=== PATIENT | female | born 1990 | race Caucasian/White ===

== ENCOUNTER 2016-08-24 14:06 | Emergency (ER) | payer OTHER ==
[~2016-08-24] VITALS: Ht 157.5 cm; Wt 86.4 kg
[2016-08-24 14:08] VITALS: BP 143/82
[2016-08-24] MEDS ORDERED: PRENTAB44 PO (14:19)
[2016-08-24] MEDS ORDERED: ZOFR20TA PO (14:19)
[2016-08-24] MEDS ORDERED: ONDANSETRON 4 MG ORAL DISINTEGRATING TAB (S0181) PO ONE (14:30)
[2016-08-24] MEDS ORDERED: NS 1,000 ML IV ONE (14:30)
[2016-08-24] MEDS ORDERED: NITROFURANTOIN (MACROBID) 100 MG CAP PO ONE (15:15)
[2016-08-24] MEDS ORDERED: MACR100C43 PO (15:17)
[2016-08-25] MEDS ORDERED: REGL10TA6 PO (12:32)
== END 2016-08-24 16:30 | disposition home or self-care (01) ==
LOC: M ED 15:56
DX: O21.0 Mild hyperemesis gravidarum (principal); O23.41 Unspecified infection of urinary tract in pregnancy, first trimester; Z3A.11 11 weeks gestation of pregnancy

== ENCOUNTER 2016-08-25 08:33 | Emergency (ER) | payer OTHER ==
[~2016-08-25] VITALS: Ht 157.5 cm; Wt 86.3 kg
[~2016-08-25 08:33] MED LIST: MACR100C43 PO; PRENTAB44 PO; ZOFR20TA PO
[2016-08-25] MEDS ORDERED: METOCLOPRAMIDE INJ 10MG/2ML VIAL (J2765) IV ONE (09:30)
[2016-08-25] MEDS ORDERED: NS 1,000 ML IV ONE (09:30)
[2016-08-25 10:29] LABS: ALKALINE PHOSPHATASE 60 U/L (45-117); ALT/SGPT 54 U/L (12-78); ANION GAP 7 MEQ/L (8-16); AST/SGOT 28 U/L (15-37); BLOOD UREA NITROGEN 6 MG/DL (7-18); CALCIUM LEVEL 9.5 MG/DL (8.5-10.1); CARBON DIOXIDE LEVEL 26 MEQ/L (21-32); CHLORIDE LEVEL 106 MEQ/L (98-107); CREATININE FOR GFR 0.61 MG/DL (0.55-1.02); GLOMERULAR FILTRATION RATE > 60.0 (>60); GLUCOSE, FASTING 84 MG/DL (70-105); POTASSIUM SERUM 3.9 MEQ/L (3.5-5.1); SODIUM LEVEL 139 MEQ/L (136-145)
[2016-08-25 10:30] LABS: ALBUMIN 3.3 GM/DL (3.2-5.2); BILIRUBIN,DIRECT < 0.1 MG/DL (0.0-0.2); BILIRUBIN,TOTAL 0.3 MG/DL (0.2-1.0); TOTAL PROTEIN 7.4 GM/DL (6.4-8.2)
[2016-08-25 10:47] LABS: BASO % 0.3 % (0.0-1.0); EOS % 0.8 % (0.0-3.0); LARGE UNSTAINED CELL # 0.3 K/mm3 (0.0-0.4); LARGE UNSTAINED CELL % 5.1 % (0.0-4.0); LYMPH # 1.8 K/mm3 (1.5-6.5); MEAN CORPUSCULAR HEMOGLOBIN 32.1 pg (27.0-33.0); MEAN CORPUSCULAR HGB CONC 35.1 g/dl (32.0-36.5); MEAN CORPUSCULAR VOLUME 91.5 fl (80.0-96.0); MONO # 0.5 K/mm3 (0.0-0.8); MONO % 7.5 % (0.0-5.0); NEUTROPHILS # 4.1 K/mm3 (1.8-7.7); NEUTROPHILS % 63.3 % (36.0-66.0); PLATELET COUNT, AUTOMATED 195 k/mm3 (150-450); RED CELL DISTRIBUTION WIDTH 12.2 % (11.5-14.5); WHITE BLOOD COUNT 6.5 K/mm3 (4.0-10.0)
[2016-08-25] MEDS ORDERED: REGL10TA6 PO (12:32)
[2016-08-25 13:12] VITALS: BP 113/72
== END 2016-08-25 13:12 | disposition home or self-care (01) ==
LOC: M ED 12:07
DX: O26.891 Other specified pregnancy related conditions, first trimester (principal); R11.0 Nausea; Z3A.11 11 weeks gestation of pregnancy
CPT/HCPCS: 80048; 80076; 81001; 85025; 87086; 96374; 99283; J2765

== ENCOUNTER 2016-08-31 13:27 | Emergency (ER) | payer OTHER ==
[~2016-08-31] VITALS: Ht 157.5 cm; Wt 84.9 kg
[~2016-08-31 13:27] MED LIST changes: +REGL10TA6 PO
[2016-08-31] MEDS ORDERED: NS 1,000 ML IV ONE (14:45)
[2016-08-31] MEDS ORDERED: TRIMETHOBENZAMIDE HCL INJ 200 MG/2 ML VIAL (J3250) IM ONE (14:45)
[2016-08-31 15:18] LABS: BASO % 0.2 % (0.0-1.0); EOS % 0.5 % (0.0-3.0); LARGE UNSTAINED CELL # 0.4 K/mm3 (0.0-0.4); LARGE UNSTAINED CELL % 4.8 % (0.0-4.0); LYMPH # 2.1 K/mm3 (1.5-6.5); LYMPH % 20.2 % (24.0-44.0); MEAN CORPUSCULAR HEMOGLOBIN 31.9 pg (27.0-33.0); MEAN CORPUSCULAR HGB CONC 34.6 g/dl (32.0-36.5); MEAN CORPUSCULAR VOLUME 92.2 fl (80.0-96.0); MONO # 0.6 K/mm3 (0.0-0.8); MONO % 6.4 % (0.0-5.0); NEUTROPHILS # 5.8 K/mm3 (1.8-7.7); NEUTROPHILS % 67.8 % (36.0-66.0); PLATELET COUNT, AUTOMATED 228 k/mm3 (150-450); RED CELL DISTRIBUTION WIDTH 12.5 % (11.5-14.5); WHITE BLOOD COUNT 8.6 K/mm3 (4.0-10.0)
--- NOTE | 2016-08-31 15:35 | REP ---
Clinical: Vaginal bleeding. Dating and viability. Technique: Transabdominal first trimester obstetrical ultrasound with color Doppler evaluation. Findings: Single live early intrauterine is appreciated. Gestational sac with pole; crown-rump length of 53 mm corresponds to 12 weeks 0 days gestational age with estimated date of delivery 03/15/2017 . heart rate equals 155 beats per minute. A small subchorionic hemorrhage along the left side of the uterus measures 19 x 5 x 11 mm. Impression: Single live early intrauterine at 12 weeks 0 days gestational age. Complete anatomical assessment should be performed and 19-20 weeks. Small subchorionic hemorrhage. Signed by Jame Darby MD 08/31/2016 03:27 P
[2016-08-31 15:43] LABS: ALBUMIN 3.7 GM/DL (3.2-5.2); ALBUMIN/GLOBULIN RATIO 0.95 (1.00-1.93); ALKALINE PHOSPHATASE 69 U/L (45-117); ALT/SGPT 109 U/L (12-78); ANION GAP 8 MEQ/L (8-16); AST/SGOT 32 U/L (15-37); BILIRUBIN,TOTAL 0.3 MG/DL (0.2-1.0); BLOOD UREA NITROGEN 8 MG/DL (7-18); CARBON DIOXIDE LEVEL 25 MEQ/L (21-32); CHLORIDE LEVEL 105 MEQ/L (98-107); CREATININE FOR GFR 0.62 MG/DL (0.55-1.02); GLOMERULAR FILTRATION RATE > 60.0 (>60); GLUCOSE, FASTING 81 MG/DL (70-105); SODIUM LEVEL 138 MEQ/L (136-145); TOTAL PROTEIN 7.6 GM/DL (6.4-8.2)
[2016-08-31] MEDS ORDERED: TIGA300C2 PO (16:03)
[2016-08-31 16:16] VITALS: BP 118/60
== END 2016-08-31 16:17 | disposition home or self-care (01) ==
LOC: M ED 13:27
DX: O21.0 Mild hyperemesis gravidarum (principal); Z3A.12 12 weeks gestation of pregnancy
CPT/HCPCS: 76801; 80053; 81001; 85025; 87086; 93976; 96372; 99283; J3250

== ENCOUNTER 2016-10-04 04:59 | Emergency (ER) | payer OTHER ==
[~2016-10-04 04:59] MED LIST changes: +TIGA300C2 PO
[2016-10-04] MEDS ORDERED: PHEN2SUP PR (05:10)
[2016-10-04] MEDS ORDERED: ACETAMINOPHEN 325 MG TAB PO ONE (06:00)
[2016-10-04 06:14] LABS: BASO % 0.2 % (0.0-1.0); EOS # 0.1 K/mm3 (0.0-0.50); EOS % 0.8 % (0.0-3.0); LARGE UNSTAINED CELL # 0.4 K/mm3 (0.0-0.4); LARGE UNSTAINED CELL % 4.6 % (0.0-4.0); LYMPH % 20.8 % (24.0-44.0); MEAN CORPUSCULAR HEMOGLOBIN 32.4 pg (27.0-33.0); MEAN CORPUSCULAR HGB CONC 35.7 g/dl (32.0-36.5); MEAN CORPUSCULAR VOLUME 90.9 fl (80.0-96.0); MONO # 0.6 K/mm3 (0.0-0.8); MONO % 7.4 % (0.0-5.0); NEUTROPHILS # 5.3 K/mm3 (1.8-7.7); NEUTROPHILS % 66.3 % (36.0-66.0); PLATELET COUNT, AUTOMATED 205 k/mm3 (150-450); RED CELL DISTRIBUTION WIDTH 12.8 % (11.5-14.5)
--- NOTE | 2016-10-04 07:10 | REPUSA ---
CLINICAL HISTORY: Pelvic pain. TECHNIQUE: Realtime sonographic images were obtained in multiple projections via TA approach. The exa mination was performed by the geophysical data technician and still images were submitted for interpretation. COMMENTS: Single, live intrauterine gestation. motion was identified. heart rate 145 beats per minute. Posterior placenta without evidence of placental abruption. Amniotic fluid appears within normal limits. No abnormality in the maternal adnexa. The estimated gestation age is 16 weeks and 3 days. Estimated delivery date on 03/18/2017. The maternal cervical length is 3 cm. This was measured transvaginally. Findings on the internal os was not visualized. Contractions seen in the lower uterine segment in anterior and posterior soto. Placenta is 3.5 cm from the internal cervical os. IMPRESSION: Single, live intrauterine gestation. Posterior placenta. Unremarkable maternal adnexa. Thank you for your kind referral of this patient.
[2016-10-04 07:23] VITALS: BP 122/73
== END 2016-10-04 07:24 | disposition home or self-care (01) ==
LOC: M ED 04:59
DX: O20.0 Threatened abortion (principal); Z3A.16 16 weeks gestation of pregnancy

== ENCOUNTER 2016-10-15 06:20 | Inpatient (IN) | payer OTHER ==
[~2016-10-15] VITALS: Ht 157.5 cm; Wt 84.0 kg
[~2016-10-15 06:20] MED LIST changes: +PHEN2SUP PR
[2016-10-15 07:27] LABS: ANION GAP 13 MEQ/L (8-16); BLOOD UREA NITROGEN 5 MG/DL (7-18); CALCIUM LEVEL 8.7 MG/DL (8.5-10.1); CARBON DIOXIDE LEVEL 20 MEQ/L (21-32); CHLORIDE LEVEL 107 MEQ/L (98-107); GLOMERULAR FILTRATION RATE > 60.0 (>60); GLUCOSE, FASTING 81 MG/DL (70-105); POTASSIUM SERUM 3.8 MEQ/L (3.5-5.1); SODIUM LEVEL 140 MEQ/L (136-145)
[2016-10-15 07:29] LABS: BASO % 0.1 % (0.0-1.0); EOS % 0.2 % (0.0-3.0); LARGE UNSTAINED CELL # 0.5 K/mm3 (0.0-0.4); LARGE UNSTAINED CELL % 4.6 % (0.0-4.0); LYMPH # 1.5 K/mm3 (1.5-6.5); MEAN CORPUSCULAR HEMOGLOBIN 32.6 pg (27.0-33.0); MEAN CORPUSCULAR VOLUME 93.2 fl (80.0-96.0); MONO # 0.6 K/mm3 (0.0-0.8); MONO % 5.8 % (0.0-5.0); NEUTROPHILS # 8.2 K/mm3 (1.8-7.7); NEUTROPHILS % 79.2 % (36.0-66.0); PLATELET COUNT, AUTOMATED 195 k/mm3 (150-450); WHITE BLOOD COUNT 10.3 K/mm3 (4.0-10.0)
[2016-10-15] MEDS: LR 1,000 ML IV SCH ×2 (08:11→16:11)
[2016-10-15] MEDS ORDERED: DOCUSATE SODIUM 100 MG CAP PO PRN (08:15)
--- NOTE | 2016-10-15 08:50 | REP ---
Obstetric ultrasound for vaginal bleeding: The studies performed with transabdominal and endovaginal imaging. According to the first ultrasound during this gestation the gestational age is 18 weeks 3 days with an JOANNE of of 2018. There is a single intrauterine gestation in a vertex presentation. heart rate is 153 - 160 beats per minute. On the images where there is an contraction in the anterior myometrium. There is questionably a cervix measuring 9.5 mm in length. This is somewhat obscured by the anterior contraction. Later during the examination after the contraction subsided the cervical canal is open with the lumen measuring 11 mm. The head is immediately adjacent to the open internal cervical os. Along the posterior margin of the endocervical canal. There is a focal clot measuring 10 x 17 mm. The clot remains in this location with the cervix opened. The placenta is anterior with grade 1 maturity. Impression: On endovaginal imaging at the end of the examination , the cervical canal is open with the lumen measuring 11 mm in diameter. head is immediately adjacent to t the internal cervical os. There is a 10 x 17 mm clot within the uterus immediately adjacent to the posterior margin of the internal cervical os. During transabdominal imaging at the beginning of the examination , there was a contraction in the anterior myometrium and the during this contraction the cervix was closed and measured approximately 9.5 mm in length. Signed by Delfin Lincoln MD 10/15/2016 08:43 A
[2016-10-15] MEDS: PRENATAL VITAMINS CHEWABLE TABLET PO SCH (09:00)
[2016-10-15] MEDS ORDERED: FLIN1CHW PO (11:37)
[2016-10-15] MEDS ORDERED: ACETAMINOPHEN 500 MG TAB PO PRN (13:30)
[2016-10-15 13:39] VITALS: BP 133/84
[2016-10-15] MEDS: ACETAMINOPHEN SUSP DYE FREE 160 MG/5 ML UDC PO PRN ×2 (14:51→21:49)
[2016-10-15 15:04] VITALS: BP 120/70
[2016-10-15 17:00] VITALS: BP 129/73
[2016-10-15 18:38] VITALS: BP 122/63
[2016-10-15 20:29] VITALS: BP 126/68
[2016-10-15] MEDS ORDERED: ONDANSETRON 4MG/2ML VIAL (J2405) IV PRN (20:45)
[2016-10-15 22:18] VITALS: BP 131/74
[2016-10-15] MEDS ORDERED: diphenhydrAMINE INJ 50MG/ML VIAL (J1200) IV PRN (23:30)
[2016-10-16] VITALS (11 sets, daily range): BP systolic 108–139; BP diastolic 58–80
[2016-10-16] MEDS: LR 1,000 ML IV SCH ×4 (02:00→22:32)
[2016-10-16] MEDS: ACETAMINOPHEN SUSP DYE FREE 160 MG/5 ML UDC PO PRN ×2 (05:44→11:34)
--- NOTE | 2016-10-16 09:20 | REP ---
Chest x-ray: Two views. Abdominopelvic shielding utilized. History: 18 weeks gestation with fever. Comparison study: No comparison study. Findings: The lungs are well inflated and free of infiltrate. The pleural angles are sharp. The heart size is normal. Pulmonary vasculature is not increased. No significant bony abnormality is seen. Impression: Negative chest x-ray. Signed by Panchito Degroot MD 10/16/2016 01:07 P
[2016-10-16] MEDS: PRENATAL VITAMINS CHEWABLE TABLET PO SCH (09:35)
[2016-10-16 10:02] LABS: MEAN CORPUSCULAR HEMOGLOBIN 32.1 pg (27.0-33.0); MEAN CORPUSCULAR VOLUME 91.9 fl (80.0-96.0); RED CELL DISTRIBUTION WIDTH 12.5 % (11.5-14.5); WHITE BLOOD COUNT 6.9 K/mm3 (4.0-10.0)
[2016-10-16] MEDS: AMPICILLIN SOD 2 GM in D5W MINI-BAG PLUS 100 ML IV SCH ×3 (10:46→22:00)
[2016-10-16] MEDS: GENTAMICIN 160 MG in D5W 50 ML IV SCH (11:20)
[2016-10-16] MEDS ORDERED: ACETAMINOPHEN 650 MG SUPP As Ordered ONE ×2 (16:23→16:25)
[2016-10-16] MEDS ORDERED: ACETAMINOPHEN 650 MG SUPP PR ONE (16:45)
[2016-10-16] MEDS ORDERED: miSOPROStol 200 MCG TAB (S0191) PO ONE (17:00)
[2016-10-16] MEDS ORDERED: diphenhydrAMINE INJ 50MG/ML VIAL (J1200) IM ONE (17:30)
[2016-10-16] MEDS ORDERED: MORPHINE 2 MG/ML 1ML SYRINGE IV PRN (17:30)
[2016-10-16] MEDS ORDERED: RHOGAM 300 MCG (1500 IU) INJ (J2790) IM SCH (18:15)
[2016-10-16] MEDS ORDERED: PROMETHAZINE 25 MG TAB PO PRN (18:15)
[2016-10-16] MEDS ORDERED: MEASLES,MUMPS,RUBELLA VACCINE INJ (MMR-II) (90707) SC SCH (18:15)
[2016-10-16] MEDS ORDERED: DIBUCAINE 1% OINTMENT 30GM TOP PRN (18:15)
[2016-10-16] MEDS: IBUPROFEN 800 MG TAB PO PRN (20:34)
[2016-10-16] MEDS ORDERED: diphenhydrAMINE INJ 50MG/ML VIAL (J1200) IM SCH (21:00)
[2016-10-17] MEDS ORDERED: miSOPROStol 200 MCG TAB (S0191) PR STA ×2 (05:44→06:59)
[2016-10-17 06:19] VITALS: BP 112/55
[2016-10-17] MEDS: AMPICILLIN SOD 2 GM in D5W MINI-BAG PLUS 100 ML IV SCH ×4 (06:31→22:19)
[2016-10-17] MEDS: ACETAMINOPHEN SUSP DYE FREE 160 MG/5 ML UDC PO PRN ×2 (06:31→20:59)
[2016-10-17] MEDS: IBUPROFEN 800 MG TAB PO PRN ×2 (06:32→16:57)
[2016-10-17] MEDS: PRENATAL VITAMINS CHEWABLE TABLET PO SCH (08:46)
[2016-10-17] MEDS ORDERED: ADACEL/BOOSTRIX VACCINE (DIPHTH/PERTUSS/ACELL/TETANUS)0.5ML SYR (90715) IM ONE (09:00)
[2016-10-17 10:37] VITALS: BP 129/62
[2016-10-17] MEDS: GENTAMICIN 160 MG in D5W 50 ML IV SCH (11:45)
[2016-10-17 14:24] VITALS: BP 116/73
[2016-10-17 18:31] VITALS: BP 139/77
[2016-10-17 22:00] VITALS: BP 116/74
[2016-10-17] MEDS ORDERED: LORazepam 1 MG TAB PO STA (22:34)
[2016-10-18 02:05] VITALS: BP 111/67
[2016-10-18] MEDS: AMPICILLIN SOD 2 GM in D5W MINI-BAG PLUS 100 ML IV SCH (04:09)
[2016-10-18 06:00] VITALS: BP 138/84
[2016-10-18] MEDS: PRENATAL VITAMINS CHEWABLE TABLET PO SCH (08:09)
[2016-10-18 09:51] VITALS: BP 122/75
[2016-10-18] MEDS: IBUPROFEN 800 MG TAB PO PRN (11:22)
[2016-10-18 14:19] VITALS: BP 129/83
--- NOTE | 2016-10-18 14:20 | REP ---
Pelvic ultrasound transabdominal and endovaginal: The patient recently delivered. The bladder is adequately distended. The uterus is enlarged measuring 15.3 x 6.3 x 8.3 cm. The endometrium is diffusely thickened measuring up to 16.7 mm and is mildly diffusely echogenic. The uterus has a subseptate configuration. 4. Unable to absolutely exclude retained products at this time. The ovaries are normal size. Right ovary measures 1.8 x 1.3 x 1.7 cm. Left ovary measures 2.2 x 1.3 x 1.9 cm. There is no free fluid in the pelvis. Impression: Diffusely enlarged uterus. Diffusely thickened echogenic endometrium. Subseptate configuration of the uterus. There are absolutely exclude retained products at this time. Signed by Delfin Lincoln MD 10/18/2016 02:10 P
[2016-10-18 18:53] VITALS: BP 134/84
--- NOTE | 2016-10-18 20:11 | ECGEPIP ---
Stationary ECG Study [facility] Test Date: 2016-10-18 Pat Name: DEYSI OGRE Department: Room: [place] [address] Gender: F Manager Clinical Applications: : 1990 Requested By: HU Nguyen Order Number: [id number] Reading MD: Ajit Echeverria Measurements Intervals [place] Rate: 83 P: 15 KS: 146 QRS: 11 QRSD: 98 T: 0 QT: 349 QTc: 411 Interpretive Statements SINUS RHYTHM MINIMAL VOLTAGE CRITERIA FOR LVH, CONSIDER NORMAL VARIANT NO PRIOR Electronically Signed On 10-18-2016 20:10:37 EDT by Ajit Echeverria
[2016-10-18 22:00] VITALS: BP 139/93
[2016-10-19] MEDS: IBUPROFEN 800 MG TAB PO PRN ×2 (00:26→08:28)
[2016-10-19 02:00] VITALS: BP 119/78
[2016-10-19 06:25] VITALS: BP 120/80
[2016-10-19] MEDS: PRENATAL VITAMINS CHEWABLE TABLET PO SCH (08:29)
[2016-10-19] MEDS ORDERED: COLA100C5 PO (09:08)
[2016-10-19] MEDS ORDERED: IBUP-1114 PO (09:09)
== END 2016-10-19 11:50 | disposition home or self-care (01) | DRG 775 ==
LOC: M ED 06:20 → M ED INP 08:11 → M LDI 11:01 → M OBS 20:24 → M LDI 10-16 16:51 → M OBS 10-16 23:55
PROVIDERS: ADMIT Obstetrics & Gynecology; ATTEND Obstetrics & Gynecology
PROC: 10E0XZZ Delivery of Products of Conception, External Approach (ICD-10-PCS; principal; 2016-10-16)
PROC: 3E0DXGC Introduction of Other Therapeutic Substance into Mouth and Pharynx, External Approach (ICD-10-PCS; 2016-10-16)
DX: O26.872 Cervical shortening, second trimester (principal); O60.12X0 Preterm labor second trimester with preterm delivery second trimester, not applicable or unspecified; O41.1220 Chorioamnionitis, second trimester, not applicable or unspecified; Z37.0 Single live birth; Z3A.18 18 weeks gestation of pregnancy; Z91.013 Allergy to seafood; O42.012 Preterm premature rupture of membranes, onset of labor within 24 hours of rupture, second trimester

== ENCOUNTER → 2017-04-12 | Outpatient (CLI) | payer OTHER | LOC: M RAD 12:51 | DX: N92.6 Irregular menstruation, unspecified (principal) ==

== ENCOUNTER 2017-07-23 06:26 | Emergency (ER) | payer OTHER ==
[2017-07-23 07:49] LABS: BASO % 0.3 % (0.0-1.0); EOS # 0.1 10^3/uL (0.0-0.50); EOS % 1.8 % (0.0-3.0); HEMATOCRIT 38.2 % (36.0-47.0); HEMOGLOBIN 12.5 g/dl (12.0-15.5); IMMATURE GRANULOCYTE % 0.4 % (0-3.0); LYMPH # 1.9 10^3/uL (1.5-6.5); LYMPH % 24.2 % (24.0-44.0); MEAN CORPUSCULAR HEMOGLOBIN 28.6 pg (27.0-33.0); MEAN CORPUSCULAR HGB CONC 32.7 g/dl (32.0-36.5); MEAN CORPUSCULAR VOLUME 87.4 fl (80.0-96.0); MONO # 0.6 10^3/uL (0.0-0.8); MONO % 6.9 % (0.0-5.0); NEUTROPHILS # 5.3 10^3/uL (1.8-7.7); NEUTROPHILS % 66.4 % (36.0-66.0); PLATELET COUNT, AUTOMATED 278 10^3/uL (150-450); RED BLOOD COUNT 4.37 10^6/uL (4.00-5.40); RED CELL DISTRIBUTION WIDTH 14.9 % (11.5-14.5); WHITE BLOOD COUNT 7.9 10^3/uL (4.0-10.0)
[2017-07-23 07:53] LABS: KETONE, URINE AUTO RFX NEGATIVE (NEGATIVE); LEUKOCYTE ESTERASE UR AUTO RFX NEGATIVE (NEGATIVE); MUCUS, URINE RFX SMALL (NEGATIVE); NITRITE, URINE AUTO RFX NEGATIVE (NEGATIVE); RBC, URINE AUTO RFX 2 /HPF (0-3); SPECIFIC GRAVITY UR AUTO RFX 1.025 (1.002-1.035); SQUAM EPITHELIAL CELL UR AURFX 4 /HPF (0-6); WBC, URINE AUTO RFX 2 /HPF (0-3)
[2017-07-23 08:42] LABS: HCG, SERUM QUANTITATIVE 2970 MIU/ML
[2017-07-23 10:48] LABS: CHLAMYDIA DNA AMPLIFICATION NEGATIVE (NEGATIVE); GC DNA AMPLIFICATION NEGATIVE (NEGATIVE)
== END 2017-07-23 10:29 | disposition home or self-care (01) ==
LOC: M ED 06:26
DX: O20.0 Threatened abortion (principal); O99.281 Endocrine, nutritional and metabolic diseases complicating pregnancy, first trimester; E28.2 Polycystic ovarian syndrome; Z3A.01 Less than 8 weeks gestation of pregnancy; Z79.899 Other long term (current) drug therapy; Z88.5 Allergy status to narcotic agent; Z88.8 Allergy status to other drugs, medicaments and biological substances; Z91.048 Other nonmedicinal substance allergy status
CPT/HCPCS: 76801

== ENCOUNTER → 2017-07-25 | Outpatient (CLI) | payer OTHER ==
[2017-07-25 09:14] LABS: HCG, SERUM QUANTITATIVE 5382 MIU/ML
== END ==
LOC: M LAB 08:02
DX: O20.0 Threatened abortion (principal); Z3A.00 Weeks of gestation of pregnancy not specified
CPT/HCPCS: 84702

== ENCOUNTER → 2017-11-25 | Outpatient (CLI) | payer OTHER | LOC: M RAD 09:35 | DX: N64.4 Mastodynia (principal) | CPT/HCPCS: 76642 ==

== ENCOUNTER 2017-11-27 23:41 | Outpatient (CLI) | payer OTHER | END 2017-11-28 01:35 | disposition home or self-care (01) | LOC: M LDO 23:41 | DX: O26.852 Spotting complicating pregnancy, second trimester (principal); Z3A.23 23 weeks gestation of pregnancy | CPT/HCPCS: G0463 ==

== ENCOUNTER 2018-03-19 07:44 | Outpatient (CLI) | payer OTHER ==
[~2018-03-19] VITALS: Ht 157.5 cm; Wt 115.3 kg
[~2018-03-19 07:44] MED LIST changes: +COLA100C5 PO; +FLIN1CHW PO; +IBUP-1114 PO; -ZOFR20TA PO; +ZOFR4TAB16 PO; +ZYRT10CA PO
[2018-03-19 08:08] VITALS: BP 135/93
[2018-03-19] MEDS ORDERED: ASPI81TA85 PO (08:15)
[2018-03-19] MEDS ORDERED: RANI1SYP PO (08:15)
[2018-03-19 09:33] VITALS: BP 136/93
== END 2018-03-19 09:19 | disposition home or self-care (01) ==
LOC: M LDO 07:44
PROVIDERS: ATTEND Obstetrics & Gynecology
DX: O47.1 False labor at or after 37 completed weeks of gestation (principal); Z3A.39 39 weeks gestation of pregnancy
CPT/HCPCS: 59025; G0378; G0463

== ENCOUNTER 2018-03-20 06:19 | Inpatient (IN) | payer OTHER ==
[2018-03-20] VITALS (34 sets, daily range): BP systolic 111–177; BP diastolic 56–93
[~2018-03-20] VITALS: Ht 157.5 cm; Wt 115.3 kg
[~2018-03-20 06:19] MED LIST changes: +ASPI81TA85 PO; +RANI1SYP PO
[2018-03-20] MEDS ORDERED: LACTATED RINGER'S 1000 ML IV STA (07:05)
--- NOTE | 2018-03-20 07:18 | HPEPDOC ---
Obstetrical History & Physical General Date of Admission History of Present Illness 27 yo at 39+1 weeks gestation presented to L&D in active labor. She also endorses a gush of fluid that has been blood tinged. She endorses excellent movement. complicated by morbid obesity (BMI >40). 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 Past Medical History Medical History Morbid obesity Surgical History: Denies/None Family History Significant Family History: No pertinent family hx Family History Noncontributory Social History Marital Status: Family situation: Spouse/partner home Psychosocial History: No pertinent psych hx * Smoker: non-smoker Alcohol: Denies Drugs: denies Imunizations Tdap status: current Influenza Status: current Allergies Coded Allergies: Iodine (Verified Allergy, Unknown, 07/23/17) Codeine (Verified Adverse Reaction, Intermediate, FEVER, CHILLS, N/V, 07/23/17) Red Dye (Unverified Adverse Reaction, Intermediate, N/V, 07/23/17) RED DYE # 40+33 Medications Scheduled ([place] Toddler/Tasti 40 mg) 1 Chw Chw, 1 CHW PO DAILY Aspirin (Aspir-81) 81 Mg Tab, 81 MG PO DAILY for pain Cetirizine HCl (Zyrtec Allergy) 10 Mg Cap, 10 MG PO DAILY Miscellaneous Medications Ranitidine Hcl (Ranitidine HCl) 15 Mg/Ml Syrp, 150 MG PO Physical Examination Physical Examination GENERAL: Alert and oriented times three. ABDOMEN: Gravid and non-tender to touch. FETUS: Is vertex (VTX) by sterile vaginal examination (SVE) EXTREMITIES: No edema. Laboratory Data Urine Culture: No Growth Pertinent Laboratoy Data Blood Type: AB+ RBC Antibody Screen: Negative HIV: Negative Hepatitis B: Negative Hepatitis C: Unknown Rapid Plasma Reagin: Nonreactive Rubella: Immune Varicella: Immune Chlamydia/Gonorrhea: Negative Group B Streptococcus: Negative Quad Screen Test: Negative Cystic Fibrosis: Unknown Glucose Tolerance Test: 141 (1hr 141, normal 3hr GTT) Anatomy Ultrasound Placenta Location: Anterior Normal Anatomy: Yes Placenta Previa: No Steroid Therapy Steroid Therapy: No Vaginal Examination Dilation: 5 cm Effacement: 90% Station: 0 Cervical Consistency: Soft Cervical Position: Anterior Presentation: Cephalic presentation Position: Vertex (occiput) Assessment Heart Rate (FHR): 145 Variability: Moderate Accelerations: Positive Decelerations: None Tocometer Contractions: Yes Frequency: regular, every 1-3 min. Duration: greater than 60 seconds Strength: palpated as moderate Assessment/Plan Assessment 27 yo at 39+1 weeks gestation presented in active labor and likely SROM. Plan Admit for expectant management of labor. Apply IV fluids. Shake Loader and consent. Diet: Clears Group B Streptococcus (GBS) negative. Anticipate normal spontaneous delivery () C-S as appropriate. DO KECIA Chávez CHRISTOPHER J. DO Mar 20, 2018 07:18
[2018-03-20 08:28] LABS: HEMATOCRIT 31.6 % (36.0-47.0); MEAN CORPUSCULAR HEMOGLOBIN 26.3 pg (27.0-33.0); MEAN CORPUSCULAR HGB CONC 31.6 g/dl (32.0-36.5); MEAN CORPUSCULAR VOLUME 83.2 fl (80.0-96.0); PLATELET COUNT, AUTOMATED 223 10^3/uL (150-450); WHITE BLOOD COUNT 12.4 10^3/uL (4.0-10.0)
--- NOTE | 2018-03-20 09:31 | IPNPDOC ---
Text Note Date of Service The patient was seen on 03/20/18. NOTE SBAR from Dr Muro at 730. ?SROM/definite labor. FHT Cat 1, improved after IFV bolus but very difficult to monitor due to abdom girth, toco not monitoring well at all. Pain increasing, desires something. Cx 90/0, FSE and IUPC placed Recheck noonish, if no signif change will augment Nub/Phen now Sessions VS,Acacia, I+O VS, Acacia, I+O Laboratory Tests 03/20/18 08:20 Red Blood Count 3.80 L, Mean Corpuscular Volume 83.2, Mean Corpuscular Hemoglobin 26.3 L, Mean Corpuscular Hemoglobin Concent 31.6 L, Red Cell Distrib ution Width 15.9 H Vital Signs Date Time Temp Pulse Resp B/P (MAP) Pulse Ox O2 Delivery O2 Flow Rate FiO2 03/20/18 08:53 98.4 20 03/20/18 06:44 88 137/83 (101) SESSIONS,ESTUARDO Rocha MD Mar 20, 2018 09:31
[2018-03-20] MEDS ORDERED: NALBUPHINE HCL 10 MG/ML AMP (J2300) IV ONE (09:45)
[2018-03-20] MEDS ORDERED: LR 1,000 ML IV SCH (09:45)
[2018-03-20] MEDS ORDERED: PROMETHAZINE INJ 25 MG/ML VIAL (J2550) IV ONE (09:45)
[2018-03-20] MEDS ORDERED: NALBUPHINE HCL 10 MG/ML AMP (J2300) IM ONE (09:45)
--- NOTE | 2018-03-20 13:13 | IPNPDOC ---
Text Note Date of Service The patient was seen on 03/20/18. NOTE Just woke up, has been to the BR Pain bearable for now FHT Cat 1, single variable noted earlier, mod maylin Cx Will start pitocin Epidural on demand Recheck in 2-3 hrs, sooner prn Sessions VS,Acacia, I+O VS, Acacia, I+O Laboratory Tests 03/20/18 08:20 Red Blood Count 3.80 L, Mean Corpuscular Volume 83.2, Mean Corpuscular Hemoglobin 26.3 L, Mean Corpuscular Hemoglobin Concent 31.6 L, Red Cell Distribution Width 15.9 H Vital Signs Date Time Temp Pulse Resp B/P (MAP) Pulse Ox O2 Delivery O2 Flow Rate FiO2 03/20/18 10:41 18 03/20/18 10:36 98.1 93 121/68 (85) SESSIONS,ESTUARDO Rocha MD Mar 20, 2018 13:13
[2018-03-20] MEDS ORDERED: OXYTOCIN DRIP 30 UNITS in APPROPRIATE DILUENT 1 EA IV SCH ×2 (13:15→17:46)
[2018-03-20] MEDS ORDERED: OXYTOCIN 30 UNITS IN 0.9% NaCl 500ML IV BAG (J2590) As Ordered ONE (13:17)
[2018-03-20] MEDS ORDERED: FENTANYL 2MCG/ML ROPIVACAINE 0.2% IN 0.9% NACL 100ML IVBAG As Ordered ONE (14:02)
[2018-03-20] MEDS: LR 1,000 ML IV SCH ×2 (14:12→15:57)
[2018-03-20] MEDS ORDERED: FENTANYL/ROPIVACAINE/NACL BAG 100 ML EPIDURAL SCH (15:00)
[2018-03-20] MEDS ORDERED: LACTATED RINGER'S 1000 ML IV PRN (15:00)
[2018-03-20] MEDS ORDERED: NALOXONE INJ 0.4 MG/1 ML VIAL (J2310) IV PRN (15:00)
[2018-03-20] MEDS ORDERED: ONDANSETRON 4MG/2ML VIAL (J2405) IV PRN (15:00)
[2018-03-20] MEDS ORDERED: EPIDURAL/PCA KEYS XX PRN (15:00)
[2018-03-20] MEDS ORDERED: EPIDURAL COMMENT XX SCH (15:00)
[2018-03-20] MEDS ORDERED: ePHEDrine SULFATE 25 MG/5 ML(5MG/ML) SYRINGE IV PRN (15:00)
[2018-03-20] MEDS ORDERED: REFRIGERATOR IV KEYS XX PRN (15:00)
[2018-03-20] MEDS ORDERED: diphenhydrAMINE INJ 50MG/ML VIAL (J1200) IV PRN (15:00)
--- NOTE | 2018-03-20 17:56 | DNPDOC ---
[facility] Delivery Note Delivery Note DATE OF DELIVERY: [id number] PREDELIVERY DIAGNOSIS: 39 1/7 weeks' gestation and labor. POST DELIVERY DIAGNOSIS: Delivered. PROCEDURE: Spontaneous vaginal delivery [employer] SAL[employer] CONSULTANT: Dr. Hurt ANESTHESIA: epidural ESTIMATED BLOOD LOSS: 300 mL. FINDINGS: 8 pound 6 ounce female , Score 9/9, loose nuchal cord times 1, reduced DELIVERY SUMMARY: Called to after only a few minutes pushing, excellent effort. No delay of the vtx or ant/post shoulders. Vigorous, to abd. Cord C/C by FOB. Cord blood. Placenta intact, fundus firm, pit going 999. 2nd degr lac repaired in standard fashion with 3-0 vicryl. Good cosmesis/hemostasis. Uncomplicated. Sessions MD HURT,ESTUARDO Rocha MD Mar 20, 2018 17:56
[2018-03-20] MEDS ORDERED: RHOGAM 300 MCG (1500 IU) INJ (J2790) IM SCH (18:00)
[2018-03-20] MEDS ORDERED: MEASLES,MUMPS,RUBELLA VACCINE INJ (MMR-II) (90707) SC SCH (18:00)
[2018-03-20] MEDS ORDERED: METOCLOPRAMIDE INJ 10MG/2ML VIAL (J2765) IV PRN (18:00)
[2018-03-20] MEDS ORDERED: DIBUCAINE 1% OINTMENT 30GM TOP PRN (18:00)
[2018-03-20] MEDS: IBUPROFEN 800 MG TAB PO PRN (19:43)
[2018-03-21] MEDS: IBUPROFEN 800 MG TAB PO PRN ×3 (04:23→23:16)
[2018-03-21 06:00] VITALS: BP 137/74
--- NOTE | 2018-03-21 07:58 | IPNPDOC ---
Progress Note Date of Service: Mar 21, 2018 Day#: 1 Progress Note PPD 1 SUBJECT: Purvi is a 27yo [id number] s/p uncomplicated on 03/20/18 after presenting in active labor, doing well day #1. She has been ambulating, voiding spontaneously without issue and tolerating regular diet. Breast feeding without issue. Reports lochia is like a normal period. No f/c/n/v/CP/SOB. OBJECTIVE: VITAL SIGNS: Within normal limits, afebrile. Alert and oriented times three. Abdomen: Fundus firm at U-2. Soft, NTTP. Extremities: no pain with palpation of calves ASSESSMENT: Purvi is a 27yo [id number] s/p uncomplicated on 03/20/18 after presenting in active labor, doing well day #1. Vitals within normal limits, afebrile, hemodynamically stable with no evidence of infection. PLAN: 1. Routine care 2. Tylenol and Motrin for pain. 3. Encourage breast feeding and ambulation. 4. Regular diet 5. Likely discharge home tomorrow Dr. Shey Beckman MD VS, I&O, 24H, [facility] Vital Signs/I&O Vital Signs Date Time Temp Pulse Resp B/P (MAP) Pulse Ox O2 Delivery O2 Flow Rate FiO2 03/21/18 06:00 97.7 88 20 137/74 (95) I&O- Last 24 Hours up to 6 AM 03/21/18 06:00 Intake Total 4728 ml Output Total 2500 ml Balance 2228 ml Laboratory Data 24H LABS Laboratory Tests 2 03/20/18 08:20: Nucleated Red Blood Cells % (auto) 0.0 CBC/BMP Laboratory Tests 03/20/18 08:20 Red Blood Count 3.80 L, Mean Corpuscular Volume 83.2, Mean Corpuscular Hemoglobin 26.3 L, Mean Corpuscular Hemoglobin Concent 31.6 L, Red Cell Distribution Width 15.9 H Shey Beckman MD Mar 21, 2018 07:58
[2018-03-21] MEDS: ACETAMINOPHEN TAB 650MG DOSE (2X325MG) PO PRN ×2 (09:31→19:29)
[2018-03-21 18:00] VITALS: BP 143/83
[2018-03-22 06:32] VITALS: BP 139/76
[2018-03-22] MEDS: ACETAMINOPHEN TAB 650MG DOSE (2X325MG) PO PRN (07:26)
--- NOTE | 2018-03-22 08:12 | IPNPDOC ---
Text Note Date of Service The patient was seen on 03/22/18. NOTE PPD2 States feeling well, pain controlled with prescribed meds. Baby bonding and feeding well. No heavy VB. Lochia slowing. Ambulating and voiding well. Tolerating PO without issues. VSSAF NAD A&O RRR CTAB LE no C/C/E Ut at U-2, firm a/p: Doing well. Cont routine care. D/C today, boarding if no baby d/c. Sessions VS,Acacia, I+O VSAcacia, I+O Vital Signs Date Time Temp Pulse Resp B/P (MAP) Pulse Ox O2 Delivery O2 Flow Rate FiO2 03/22/18 06:32 96.9 89 18 139/76 (97) SESSIONS,ESTUARDO Rocha MD Mar 22, 2018 08:12
--- NOTE | 2018-03-22 08:15 | DS.PDOC ---
Discharge Summary General Date of Admission Mar 20, 2018 at 07:08 Date of Discharge 22mar2018 Discharge Summary ADMITTING DIAGNOSES: Active labor DISCHARGE DIAGNOSES: Same, HOSPITAL COURSE: Admitted and delivery uncomplicated, . course uncomplicated. DISCHARGE MEDICATIONS: Motrin, Lanolin, Nor DISCHARGE INSTRUCTIONS: Nothing in the vagina for 6 weeks. F/U in OBGYN clinic in 6-8 weeks. Sessions Vital Signs/I&Os Vital Signs Date Time Temp Pulse Resp B/P (MAP) Pulse Ox O2 Delivery O2 Flow Rate FiO2 03/22/18 06:32 96.9 89 18 139/76 (97) Discharge Medications Scheduled ([place] Toddler/Tasti 40 mg) 1 Chw Chw, 1 CHW PO DAILY, (Reported) Aspirin (Aspir-81) 81 Mg Tab, 81 MG PO DAILY for pain, (Reported) Cetirizine HCl (Zyrtec Allergy) 10 Mg Cap, 10 MG PO DAILY, (Reported) Miscellaneous Medications Ranitidine Hcl (Ranitidine HCl) 15 Mg/Ml Syrp, 150 MG PO, (Reported) Allergies Coded Allergies: Iodine (Verified Allergy, Unknown, 07/23/17) Codeine (Verified Adverse Reaction, Intermediate, FEVER, CHILLS, N/V, 07/23/17) Red Dye (Unverified Adverse Reaction, Intermediate, N/V, 07/23/17) RED DYE # 40+33 SESSIONS,ESTUARDO Rocha MD Mar 22, 2018 08:15
[2018-03-22] MEDS ORDERED: IBUP-1114 PO (11:25)
[2018-03-22] MEDS ORDERED: MAPA500T2 PO (11:27)
== END 2018-03-22 14:25 | disposition home or self-care (01) | DRG 806 ==
LOC: M LDO 06:19 → M LDI 07:08 → M OBS 22:20
PROVIDERS: ADMIT Obstetrics & Gynecology; ATTEND Obstetrics & Gynecology
PROC: 10E0XZZ Delivery of Products of Conception, External Approach (ICD-10-PCS; principal; 2018-03-20)
PROC: 0KQM0ZZ Repair Perineum Muscle, Open Approach (ICD-10-PCS; 2018-03-20)
DX: O99.214 Obesity complicating childbirth (principal); Z37.0 Single live birth; Z68.41 Body mass index [BMI] 40.0-44.9, adult; E66.01 Morbid (severe) obesity due to excess calories; O69.81X0 Labor and delivery complicated by cord around neck, without compression, not applicable or unspecified; O70.1 Second degree perineal laceration during delivery; Z3A.39 39 weeks gestation of pregnancy

== ENCOUNTER → 2018-08-30 | Outpatient (REF) | payer OTHER ==
[~2018-08-30] MED LIST changes: +ALL10TAB28; +MAPA500T2 PO; +NORE0.353 PO; +OLOP0.1D; +RANI150T14 PO; +ZOLO50TA PO
== END ==
LOC: M SFHCLERA 17:06
PROVIDERS: ATTEND Physician Assistant
DX: J02.9 Acute pharyngitis, unspecified (principal)

== ENCOUNTER 2018-09-01 15:00 | Emergency (ER) | payer OTHER ==
[~2018-09-01] VITALS: Ht 157.5 cm; Wt 104.5 kg
[~2018-09-01 15:00] MED LIST changes: -ALL10TAB28; -NORE0.353 PO; -OLOP0.1D; -RANI150T14 PO; -ZOLO50TA PO
[2018-09-01] MEDS ORDERED: ALL10TAB28 (15:12)
[2018-09-01] MEDS ORDERED: OLOP0.1D (15:12)
[2018-09-01] MEDS ORDERED: ZOLO50TA PO (15:12)
[2018-09-01] MEDS ORDERED: NORE0.353 PO (15:12)
[2018-09-01] MEDS ORDERED: RANI150T14 PO (15:12)
[2018-09-01 15:50] LABS: BASO % 0.3 % (0.0-1.0); EOS # 0.2 10^3/uL (0.0-0.50); EOS % 2.2 % (0.0-3.0); HEMATOCRIT 40.8 % (36.0-47.0); HEMOGLOBIN 12.8 g/dl (12.0-15.5); LYMPH # 2.2 10^3/uL (1.5-6.5); LYMPH % 22.1 % (24.0-44.0); MEAN CORPUSCULAR HEMOGLOBIN 27.4 pg (27.0-33.0); MEAN CORPUSCULAR HGB CONC 31.4 g/dl (32.0-36.5); MEAN CORPUSCULAR VOLUME 87.2 fl (80.0-96.0); MONO # 0.7 10^3/uL (0.0-0.8); MONO % 7.2 % (0.0-5.0); NEUTROPHILS # 6.7 10^3/uL (1.8-7.7); PLATELET COUNT, AUTOMATED 300 10^3/uL (150-450); RED BLOOD COUNT 4.68 10^6/uL (4.00-5.40); WHITE BLOOD COUNT 9.8 10^3/uL (4.0-10.0)
[2018-09-01 16:11] LABS: BLOOD UREA NITROGEN 12 MG/DL (7-18); CALCIUM LEVEL 8.4 MG/DL (8.5-10.1); CARBON DIOXIDE LEVEL 27 MEQ/L (21-32); CHLORIDE LEVEL 108 MEQ/L (98-107); CREATININE FOR GFR 0.63 MG/DL (0.55-1.30); GLOMERULAR FILTRATION RATE > 60.0 (>60); GLUCOSE, FASTING 90 MG/DL (70-100); POTASSIUM SERUM 4.5 MEQ/L (3.5-5.1); SODIUM LEVEL 141 MEQ/L (136-145)
[2018-09-01 18:01] VITALS: BP 145/88
== END 2018-09-01 18:03 | disposition home or self-care (01) ==
LOC: M ED 15:00
DX: N93.9 Abnormal uterine and vaginal bleeding, unspecified (principal); Z79.899 Other long term (current) drug therapy; Z88.5 Allergy status to narcotic agent; Z91.013 Allergy to seafood; Z91.041 Radiographic dye allergy status

== ENCOUNTER → 2018-09-20 | Outpatient (CLI) | payer OTHER ==
[~2018-09-20] MED LIST changes: +ALL10TAB28; +NORE0.353 PO; +OLOP0.1D; +RANI150T14 PO; +ZOLO50TA PO
--- NOTE | 2018-09-21 07:59 | REP ---
RIGHT ANKLE, FOUR VIEWS: There is no evidence of an acute fracture, dislocation or intrinsic bone disease. IMPRESSION: No fracture or dislocation. Electronically Signed by Delfin Valdez MD 09/21/2018 10:32 P
== END ==
LOC: M LRY 15:38
PROVIDERS: ATTEND Physician Assistant Medical
DX: S99.911A Unspecified injury of right ankle, initial encounter (principal); X58.XXXA Exposure to other specified factors, initial encounter; Y92.89 Other specified places as the place of occurrence of the external cause
CPT/HCPCS: 73610; G0463